=== PATIENT | male | born 1935 | race Caucasian/White ===

== ENCOUNTER → 2016-12-31 | Outpatient (CLI) | payer MEDICARE, BC ==
[~2016-12-31] MED LIST: ASPI-557 PO; HYDR25TA PO; LISI-621 PO; METO100T7 PO; VARE1TAB21 PO
== END ==
LOC: NEU 08:26
PROVIDERS: ATTEND Internal Medicine
DX: M54.17 Radiculopathy, lumbosacral region (principal); M54.31 Sciatica, right side; G56.03 Carpal tunnel syndrome, bilateral upper limbs; G56.23 Lesion of ulnar nerve, bilateral upper limbs
CPT/HCPCS: 95886; 95912

== ENCOUNTER → 2017-01-15 | Outpatient (CLI) | payer MEDICARE, BC ==
--- NOTE | 2017-01-15 16:40 | DI ---
Indication: ITS.REASON: M54.12 CERVICALGIA PROCEDURE: MRI CERVICAL SPINE W/O CONTRAS: Encounter: Initial Comparison: None Technique: Multiplanar multisequence MR imaging of the cervical spine was performed without contrast. Findings: Alignment of the cervical spine is straightened with some loss of the normal lordosis. No acute fracture identified. There is focal T2 hyperintense cord lesion at the C3-C4 level which appears to be due to chronic impingement and myelomalacia which will be described below. The remaining visualized spinal cord signal intensity is normal. The paraspinal soft tissues are grossly unremarkable. Segmental analysis: C2-C3: Degenerative facet and uncovertebral changes causing moderate bilateral neural foraminal stenosis. No significant central canal stenosis. C3-C4: Central disk osteophyte with degenerative facet and uncovertebral changes causing compression of the cord and severe central canal stenosis. Severe bilateral neural foraminal stenosis with impingement on the exiting C4 nerve roots bilaterally. C4-C5: Severe degenerative facet and uncovertebral changes left greater than right causing severe neural foraminal stenosis and impingement on the exiting C5 nerve root on the left. Moderate right neural foraminal stenosis. No significant central canal narrowing. C5-C6: Small disk osteophyte complex with degenerative facet and vertebral changes predominantly on the left causing severe neural foraminal stenosis. No central canal or right. C6-C7: Left central disk protrusion effacing the left aspect of the thecal sac with mild central canal narrowing. Degenerative facet and uncovertebral changes obliterating the left neural foramen with impingement on the exiting C7 nerve root. Severe right neural foraminal stenosis also at this level. C7-T1: Disk osteophyte complex without significant central canal stenosis. Facet and uncovertebral changes with moderate bilateral neural foraminal stenosis. Impression: Severe degenerative disk and facet disease with multiple areas of nerve root impingement. 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 Spinal surgical consultation is recommended. .
== END ==
LOC: IMA 13:30
PROVIDERS: ATTEND Internal Medicine
DX: M50.11 Cervical disc disorder with radiculopathy, high cervical region (principal); G95.89 Other specified diseases of spinal cord